=== PATIENT | male | born 2000 | race American Indian/Alaskan Native ===

== ENCOUNTER 2022-04-06 16:00 | Emergency (ER) | payer MEDICAID ==
--- NOTE | 2022-04-06 17:37 | Emergency Department Report ---
ED Abdominal Pain HPI - General Stated Complaint: ABDOMINAL PAIN PUI?: No Time Seen by Provider: 04/06/22 17:34 Source: patient Mode of arrival: Ambulatory Limitations: No Limitations - History of Present Illness Initial Comments: 21 yo with diffuse abd pain. Had this same in January. It went away and now returns about 1 m ago. Last ETOH 1 week ago. Pos n/v. No fever or chills. Went to Urgent care who sent him here Complaint: abdominal pain - Related Data Previous Rx's Medication Instructions Recorded Last Taken Type Dicyclomine [Bentyl] 10 mg PO TID #30 cap 04/07/22 Unknown Rx Omeprazole 20 mg PO QHS #20 04/07/22 Unknown Rx Allergies Allergy/AdvReac Type Severity Reaction Status Date / Time No Known Allergies Allergy Verified 04/06/22 17:39 ED Review of Systems ROS: Stated complaint: ABDOMINAL PAIN Other details as noted in HPI Comment: All other systems reviewed and negative ED Past Medical Hx - Past Medical History Previous Medical History?: Yes Hx Asthma: Yes - Surgical History Past Surgical History?: No - Family History Family history: no significant - Social History Substance Use Type: Alcohol, Marijuana - Medications Home Medications: Home Medications Medication Instructions Recorded Confirmed Last Taken Type Dicyclomine [Bentyl] 10 mg PO TID #30 cap 04/07/22 Unknown Rx Omeprazole 20 mg PO QHS #20 04/07/22 Unknown Rx ED Physical Exam - General General appearance: alert, in no apparent distress - Head Head exam: Present: atraumatic, normocephalic - Eye Eye exam: Present: normal appearance - ENT ENT exam: Present: mucous membranes moist - Neck Neck exam: Present: normal inspection - Respiratory Respiratory exam: Present: normal lung sounds bilaterally. Absent: respiratory distress - Cardiovascular Cardiovascular Exam: Present: regular rate, normal rhythm. Absent: systolic murmur, diastolic murmur, rubs, gallop - GI/Abdominal GI/Abdominal exam: Present: soft, normal bowel sounds - Rectal Rectal exam: Present: deferred - Extremities Exam Extremities exam: Present: normal inspection - Back Exam Back exam: Present: normal inspection - Neurological Exam Neurological exam: Present: alert, oriented X3 - Psychiatric Psychiatric exam: Present: normal affect, normal mood - Skin Skin exam: Present: warm, dry, intact, normal color. Absent: rash ED Course Vital Signs 04/06/22 04/06/22 04/07/22 17:35 23:48 02:51 Temperature 98.6 F 98.2 F Pulse Rate 89 99 H Respiratory 18 18 20 Rate Blood Pressure 131/83 137/83 [Right] O2 Sat by Pulse 98 99 100 Oximetry ED Medical Decision Making - Lab Data Result diagrams: 04/06/22 17:56 04/06/22 17:56 - Medical Decision Making ER for eval Critical care attestation.: If time is entered above; I have spent that time in minutes in the direct care of this critically ill patient, excluding procedure time. ED Disposition Clinical Impression: Upper abdominal pain, Leukocytosis Disposition: 01 HOME / SELF CARE / HOMELESS Is pt being admited?: No Does the pt Need Aspirin: No Condition: Stable Instructions: Pancreatitis Eating Plan, Abdominal Pain, Adult, [id number] Prescriptions: Omeprazole 20 mg PO QHS #20 Dicyclomine [Bentyl] 10 mg PO TID #30 cap Referrals: PRIMARY MD BALBINA [Primary Care Provider] - 3-5 Days RANDELL GARCIA MD [Staff Physician] - 3-5 Days Forms: Work/School Release Form(ED)
[2022-04-06 18:54] LABS: Alanine Aminotransferase 19 units/L (7-56); Albumin 4.7 g/dL (3.9-5); BUN/Creatinine Ratio 14; Blood Urea Nitrogen 14 mg/dL (9-20); Calcium 9.4 mg/dL (8.4-10.2); Hemolysis Index 1
[2022-04-06 19:11] LABS: Bilirubin,Direct < 0.2 mg/dL (0-0.2)
[2022-04-06 19:26] LABS: Hematocrit 33.1 % (35.5-45.6); Hemoglobin 10.5 gm/dl (11.8-15.2); Mean Corpuscular HGB Conc 32 % (32-34); Mean Corpuscular Volume 88 fl (84-94); Platelet Count 379 K/mm3 (140-440); Red Blood Count 3.76 M/mm3 (3.65-5.03); Red Cell Distribution Width 14.9 % (13.2-15.2)
[2022-04-06 20:22] LABS: Band Neutrophils # (Manual) 0.4 K/mm3; Basophils % (Manual) 0 % (0.0-1.8); Eosinophils % (Manual) 0 % (0.0-4.3); RBC Morphology Normal; Total Cells Counted 100
[2022-04-06] MEDS ORDERED: MORPHINE 4 MG/1 ML INJ IV ONE (23:17)
[2022-04-06] MEDS ORDERED: ONDANSETRON 4 MG/2 ML INJ IV ONE (23:17)
[2022-04-06] MEDS ORDERED: SODIUM CHLORIDE 0.9% 1000 ML 1,000 ML IV ONE (23:17)
[2022-04-06] MEDS ORDERED: FAMOTIDINE 20 MG/2 ML INJ IV ONE (23:18)
--- NOTE | 2022-04-06 23:23 | Emergency Department Report ---
ED Abdominal Pain HPI - General Chief Complaint: Abdominal Pain Stated Complaint: ABDOMINAL PAIN Time Seen by Provider: 04/06/22 17:34 Source: patient Mode of arrival: Ambulatory Limitations: No Limitations - History of Present Illness Initial Comments: 18-year-old male presents with diffuse abdominal pain. Patient reports symptoms initially began a month ago, resolved and then has gotten worse in the last week. No nausea , 1 episode of vomiting. States he was seen at an outside hospital at [facility] and was told he has something wrong with his pancreas. He endorses alcohol use but "he has reduced his drinking". Pain appears to improve with some unknown medication his mother gave him at night, worse whenever he eats certain foods or drinks soda. He denies diarrhea, no fever, pain does not radiate, he describes his pain as sharp aching. MD Complaint: abdominal pain Severity scale (0 -10): 10 - Related Data Previous Rx's Medication Instructions Recorded Last Taken Type Dicyclomine [Bentyl] 10 mg PO TID #30 cap 04/07/22 Unknown Rx Omeprazole 20 mg PO QHS #20 04/07/22 Unknown Rx Allergies Allergy/AdvReac Type Severity Reaction Status Date / Time No Known Allergies Allergy Verified 04/06/22 17:39 ED Review of Systems ROS: Stated complaint: ABDOMINAL PAIN Other details as noted in HPI ED Past Medical Hx - Past Medical History Previous Medical History?: Yes Hx Asthma: Yes - Surgical History Past Surgical History?: No - Social History Substance Use Type: Alcohol, Marijuana - Medications Home Medications: Home Medications Medication Instructions Recorded Confirmed Last Taken Type Dicyclomine [Bentyl] 10 mg PO TID #30 cap 04/07/22 Unknown Rx Omeprazole 20 mg PO QHS #20 04/07/22 Unknown Rx ED Physical Exam - General Limitations: No Limitations General appearance: alert, in no apparent distress - Head Head exam: Present: atraumatic - Eye Eye exam: Present: normal appearance Pupils: Present: normal accommodation - ENT ENT exam: Present: normal exam, normal orophraynx - Neck Neck exam: Present: normal inspection. Absent: tenderness - Respiratory Respiratory exam: Present: normal lung sounds bilaterally - Cardiovascular Cardiovascular Exam: Present: regular rate, normal rhythm - GI/Abdominal GI/Abdominal exam: Present: soft, tenderness (Right upper and epigastric tenderness with), normal bowel sounds. Absent: guarding, rebound - Extremities Exam Extremities exam: Present: normal inspection, full ROM - Back Exam Back exam: Present: normal inspection. Absent: CVA tenderness (R) - Neurological Exam Neurological exam: Present: alert, oriented X3 - Skin Skin exam: Present: warm, dry, intact ED Course Vital Signs 04/06/22 04/06/22 04/07/22 17:35 23:48 02:51 Temperature 98.6 F 98.2 F Pulse Rate 89 99 H Respiratory 18 18 20 Rate Blood Pressure 131/83 137/83 [Right] O2 Sat by Pulse 98 99 100 Oximetry ED Medical Decision Making - Lab Data Result diagrams: 04/06/22 17:56 04/06/22 17:56 - Radiology Data Radiology results: report reviewed Negative no acute process - Medical Decision Making Differential diagnosis includes PUD, pancreatitis, gastritis, cholecystitis, choledocholithiasis, ulcers, 21-year-old presenting with abdominal pain w orsening with food. Improves with some kind of medication his mother provides which I suspect is a PPI. CT scan is reassuring, no acute processes, pain appears to also be worsening with alcohol which have also encouraged patient to desist from alcohol for now, dietary management, Sleep throughout ED course, vital signs stable afebrile tolerating oral intake. CT reviewed, no acute process abnormalities, Ambulates steadily without guarding. Patient verbalizes understanding of everything discussed, discharged home with supportive therapy, dietary modification and referral Critical care attestation.: If time is entered above; I have spent that time in minutes in the direct care of this critically ill patient, excluding procedure time. ED Disposition Clinical Impression: Upper abdominal pain, Leukocytosis Disposition: 01 HOME / SELF CARE / HOMELESS Is pt being admited?: No Does the pt Need Aspirin: No Condition: Stable Instructions: Pancreatitis Eating Plan, Abdominal Pain, Adult, [id number] Prescriptions: Omeprazole 20 mg PO QHS #20 Dicyclomine [Bentyl] 10 mg PO TID #30 cap Referrals: PRIMARY CAREMD [Primary Care Provider] - 3-5 Days RANDELL GARCIA MD [Staff Physician] - 3-5 Days Forms: Work/School Release Form(ED)
[2022-04-06 23:49] VITALS: BP 137/83
--- NOTE | 2022-04-07 01:16 | Cat Scan Report ---
CT ABDOMEN AND PELVIS WITH CONTRAST INDICATION / CLINICAL INFORMATION: Upper abdominal pain, 18,000 WBCs. TECHNIQUE: Axial CT images were obtained through the abdomen and pelvis after 100 cc Omnipaque [address] scans at this location are performed using CT dose reduction for ALARA by means of automated exposure control. COMPARISON: None available. FINDINGS: LOWER CHEST: No significant abnormality of the imaged chest. LIVER: No focal lesion. No acute findings. GALLBLADDER / BILE DUCTS: No significant abnormality. Biliary ducts grossly unremarkable. SPLEEN: No significant abnormality. PANCREAS: No significant abnormality. ADRENALS: No significant abnormality. KIDNEYS/URETERS: No stones or hydronephrosis. No solid renal lesion. STOMACH / DUODENUM / SMALL BOWEL: The stomach, duodenum, and small bowel demonstrate no significant a bnormality. No specific abnormality of the mesentery demonstrated. COLON: No significant abnormality. APPENDIX: No significant abnormality. PERITONEUM: No free air or free fluid are present within the abdomen or pelvis. LYMPH NODES: No significant adenopathy. AORTA / ARTERIES: No significant abnormality. IVC / VEINS: No significant abnormality. URINARY BLADDER: No significant abnormality. REPRODUCTIVE ORGANS: No significant abnormality. SKELETAL SYSTEM: No significant abnormality. ADDITIONAL ABDOMINAL/PELVIC FINDINGS: None. IMPRESSION: 1. No acute findings within the abdomen or pelvis. Signer Name: Dante Falcon II, MD Signed: 04/07/2022 1:11 AM Workstation Name: [id number]
== END 2022-04-07 03:14 | disposition home or self-care (01) ==
LOC: ED 16:00
DX: R10.10 Upper abdominal pain, unspecified (principal); D72.829 Elevated white blood cell count, unspecified; F12.90 Cannabis use, unspecified, uncomplicated; F10.20 Alcohol dependence, uncomplicated; J45.909 Unspecified asthma, uncomplicated
CPT/HCPCS: 36415; 74177; 80048; 80076; 83690; 85007; 85025; 96361; 96374; 96375; 99284; J2270; J2405; J3490; J7030; Q9967